=== PATIENT | female | born 1975 | race Caucasian/White ===

== ENCOUNTER 2021-10-02 23:08 | Emergency (ER) | payer BC ==
[~2021-10-02] VITALS: Ht 172.7 cm; Wt 95.5 kg
[2021-10-02 23:16] VITALS: BP 141/81; PULSE 73
[2021-10-03] MEDS ORDERED: NAPROSYN500 MG PO (00:13)
== END 2021-10-03 00:55 | disposition home or self-care (01) ==
LOC: COL.ER 23:08
DX: M25.461 Effusion, right knee (principal); F17.290 Nicotine dependence, other tobacco product, uncomplicated; Z87.81 Personal history of (healed) traumatic fracture
CPT/HCPCS: J1885